=== PATIENT | male | born 2000 | race Caucasian/White ===

== ENCOUNTER 2020-04-11 16:15 | Outpatient (CLI) | payer OTHER | END 2020-04-11 16:16 | disposition home or self-care (01) | LOC: COV 16:15 | PROVIDERS: ATTEND Surgery | DX: Z01.818 Encounter for other preprocedural examination (principal); L05.91 Pilonidal cyst without abscess; Z20.828 Contact with and (suspected) exposure to other viral communicable diseases ==

== ENCOUNTER 2020-04-15 07:48 | Day surgery (SDC) | payer OTHER ==
[2020-04-15] MEDS ORDERED: LACTATED RINGERS 1,000 ML IV ONE ×2 (08:05→10:24)
[2020-04-15] MEDS ORDERED: CEFAZOLIN SODIUM IN 0.9 % NACL 2 GM/100 ML BAG IV ONE (08:32)
--- NOTE | 2020-04-15 08:35 | ANESTHESIA ---
Pre-Anesthesia VS, & Labs - Diagnosis pilonidal cyst - Procedure pilonidal cystectomy Vital Signs: Temp Pulse Resp BP Pulse Ox 36.6 C 76 12 146/85 H 100 04/15/20 08:05 04/15/20 08:05 04/15/20 08:05 04/15/20 08:05 04/15/20 08:05 Height: 5 ft 7 in Weight (kg): 72.2 kg Body Mass Index: 24.9 BMI Classification: Healthy weight - NPO >8 hours Home Medications and Allergies Home Medications: Ambulatory Orders Loratadine [Claritin] 10 mg PO DAILY 04/07/20 Naproxen [Naprosyn] 250 mg PO Q8H 04/07/20 Loratadine [Claritin] 10 mg PO DAILY 04/07/20 Naproxen [Naprosyn] 250 mg PO Q8H 04/07/20 Allergies/Adverse Reactions: Allergies Allergy/AdvReac Type Severity Reaction Status Date / Time No Known Drug Allergies Allergy Verified 04/07/20 14:15 Anes History & Medical History - Anesthetic History Family history of Anesthesia Complications: Denies Family history of Malignant Hyperthermia: Denies - Medical History Cardiovascular: reports: None Pulmonary: reports: None Gastrointestinal: reports: GERD Urinary: reports: None Neuro: reports: None Musculoskeletal: reports: None Endocrine/Autoimmune: reports: None Blood Disorders: reports: None Skin: reports: None Smoking Status: Current every day smoker (vape daily) Psychosocial: reports: Alcohol (Weekend drinks 5-6) History of Cancer?: No Exam General: Alert, Oriented x3, Cooperative, No acute distress Dental: WNL Mouth Openin Fingerbreadth Neck Mobility: Normal Mallampati classification: II Thyromental Distance: 4-6 cm Respiratory: Lungs clear, Normal breath sounds, No respiratory distress, No accessory muscle use Cardiovascular: Regular rate, Normal S1, Normal S2, No murmurs Mental/Cognitive Status: Alert/Oriented X3, Normal for patient Plan Anesthesia Type: General Consent for Procedure(s) Verified and Reviewed: Yes Code Status: Attempt Resuscitation ASA classification: 2-Mild systemic disease Is this case an emergency?: No
[2020-04-15] MEDS ORDERED: metroNIDAZOLE 500 MG/100 ML 500 MG/100 ML BAG ONE (08:40)
[2020-04-15 08:57] LABS: C. PNEUMONIAE- RESP PCR PANEL NOT DETECTED
[2020-04-15] MEDS ORDERED: BUPIVACAINE 0.25% PF 30 ML VIAL ONE (09:03)
[2020-04-15] MEDS ORDERED: GLYCOPYRROLATE 1 MG/5 ML VIAL IVP ONE (09:20)
[2020-04-15] MEDS ORDERED: ONDANSETRON 4 MG/2 ML VIAL IVP ONE (09:20)
[2020-04-15] MEDS ORDERED: DEXAMETHASONE 4 MG/ML VIAL IVP ONE (09:20)
[2020-04-15] MEDS ORDERED: LIDOCAINE-MPF 2% 5 ML VIAL IM ONE (09:20)
[2020-04-15] MEDS ORDERED: fentaNYL 100 MCG/2 ML VIAL IVP ONE (09:20)
[2020-04-15] MEDS ORDERED: PROPOFOL 200 MG/20 ML VIAL IVP ONE (09:20)
[2020-04-15] MEDS ORDERED: ROCURONIUM 50 MG/5 ML VIAL IVP ONE (09:20)
[2020-04-15] MEDS ORDERED: MIDAZOLAM 2 MG/2 ML VIAL IVP ONE (09:20)
[2020-04-15] MEDS ORDERED: NEOSTIGMINE 1 MG/1 ML 10 ML MDV IVP ONE (09:20)
[2020-04-15] MEDS ORDERED: BUPIVACAINE 0.25% PF 30 ML VIAL SUBQ ONE ×2 (09:46)
[2020-04-15] MEDS ORDERED: HYDROcod/ACETAM 5/325 MG TABLET PO PRN (10:26)
--- NOTE | 2020-04-15 10:26 | OPERATIVE REPORT ---
Operative Report - General Procedure Date: 04/15/20 Planned Procedure: pilonidal agnieszka procedure Pre-Op Diagnosis: pilonidal cyst Procedure Performed: pilonidal agnieszka procedure Post Op Diagnosis: same - Procedure Note Primary Surgeon: bernice weathers Anesthesia Technique: General ET tube, Local Pathology: not sent Drain/Tube Type: Other (none) Complications: none
[2020-04-15] MEDS ORDERED: LACTATED RINGERS 1,000 ML IV SCH ×2 (11:00→12:00)
[2020-04-15] MEDS ORDERED: NALOXONE 0.4 MG/ML VIAL IVP PRN (11:09)
[2020-04-15] MEDS ORDERED: ATROPINE ABBOJECT 1 MG/10 ML SYRINGE IVP PRN (11:09)
[2020-04-15] MEDS ORDERED: MORPHINE 2 MG/ML CARPUJECT IVP PRN (11:09)
[2020-04-15] MEDS ORDERED: fentaNYL 100 MCG/2 ML VIAL IVP PRN (11:09)
[2020-04-15] MEDS ORDERED: ONDANSETRON 4 MG/2 ML VIAL IVP PRN (11:09)
[2020-04-15] MEDS ORDERED: ePHEDrine 50 MG/ML VIAL IVP PRN (11:09)
[2020-04-15] MEDS ORDERED: HYDROmorphone 0.5 MG/0.5 ML SYRINGE IVP PRN (11:09)
[2020-04-15] MEDS ORDERED: METOCLOPRAMIDE 10 MG/2 ML VIAL IVP PRN (11:09)
--- NOTE | 2020-04-15 11:10 | ANESTHESIA POST OP EVALUATION ---
Anesthesia Post Eval - Post Anesthesia Eval Vitals: Last Vital Signs Temp 36.3 C L 04/15/20 10:54 Pulse 60 04/15/20 10:54 Resp 11 L 04/15/20 10:54 BP 119/84 H 04/15/20 10:54 Pulse Ox 100 04/15/20 10:54 CV Function Including HR & BP: positive: Stable Pain Control: positive: Satisfactory Nausea & Vomiting: positive: Negative Mental Status: positive: Baseline Respiratory Status: Airway Patent Hydration Status: Satisfactory Anesthesia Complications: positive: None
[2020-04-15 11:17] VITALS: BP 117/52
--- NOTE | 2020-04-15 17:28 | OPERATIVE REPORT ---
DATE OF SERVICE: 04/15/2020 Physician: Brian Estrada MD PREOPERATIVE DIAGNOSIS: Pilonidal cyst. POSTOPERATIVE DIAGNOSIS: Pilonidal cyst. PROCEDURE PERFORMED: Pilonidal cyst excision, [place] procedure. SURGEON: Brian Estrada MD SEWING ROOM SUPERVISOR: None. ANESTHESIA 1. General endotracheal anesthesia. 2. Local anesthesia with Marcaine. COMPLICATIONS: None. SPECIMEN: Benign tissue, not sent for pathology. ESTIMATED BLOOD LOSS: 10 mL DRAINS: None. FINDINGS: Four to five adjacent sinus tracts in midline. A considerable amount of granulation tissue and hair directly beneath. INDICATIONS FOR PROCEDURE: Patient is a healthy 19-year-old with pilonidal cyst disease for many months. He presents for excision. Risks discussed, alternatives discussed, all questions answered, and consent obtained. DETAILS OF PROCEDURE: Patient was properly identified and brought to the operating room. General endotracheal anesthesia was induced while on stretcher. He was very carefully repositioned prone. He was prepped and draped in a sterile fashion, given preoperative antibiotics. Sequential compression devices were used. Local anesthetic was given. A very small ellipse was made in the midline, removing the 4 to 5 adjacent sinus tracts. A left lateral 4 cm incision was made. A skin flap was raised. The pilonidal cyst was completely excised back to normal healthy tissue. Flaps were raised, left lateral and right lateral consisting of subcutaneous tissue. Hemostasis was assured. Deep subcutaneous tissue was closed with interrupted 2-0 Vicryl suture. Buried interrupted subdermal 3-0 Vicryl sutures were then placed. Skin edges were reapproximated loosely with vertical mattress of 3-0 nylon. He tolerated the procedure well, was repositioned, awakened, and brought to recovery in good condition. TD: 04/15/2020 10:46 [facility]
== END 2020-04-15 07:49 | disposition home or self-care (01) ==
LOC: SDS 07:48
PROVIDERS: ATTEND Surgery
PROC: 0JB90ZZ Excision of Buttock Subcutaneous Tissue and Fascia, Open Approach (ICD-10-PCS; principal; 2020-04-15 09:00)
DX: L05.91 Pilonidal cyst without abscess (principal); Z20.828 Contact with and (suspected) exposure to other viral communicable diseases; F17.290 Nicotine dependence, other tobacco product, uncomplicated
CPT/HCPCS: 0202U; 11770; J0690; J7120